=== PATIENT | male | born 1960 | race Caucasian/White ===

== ENCOUNTER 2018-06-24 14:35 | Outpatient (REF) | payer BC, SELFPAY ==
[2018-06-24 19:20] LABS: ALT 58 U/L (12-78); LDL CHOLESTEROL 115 mg/dL (<100)
== END 2018-06-24 14:55 ==
LOC: NCHCN 14:35
PROVIDERS: PCP Internal Medicine; Visit Provider Internal Medicine
DX: Z00.00 Encounter for general adult medical examination without abnormal findings (principal); E78.5 Hyperlipidemia, unspecified; E03.9 Hypothyroidism, unspecified
CPT/HCPCS: 83721; 84443; 84460

== ENCOUNTER 2020-01-11 16:13 | Outpatient (REF) | payer BC, SELFPAY ==
[2020-01-11 19:53] LABS: ALT 45 U/L (16-63); CREATININE 0.95 mg/dL (0.70-1.30); Calculated LDL 107 mg/dL (<100); Cholesterol 164 mg/dL (<200); Glucose 87 mg/dL (74-106); HDL Cholesterol 34 mg/dL (40-60); TSH 1.67 uIU/mL (0.36-3.74); Triglyceride 118 mg/dL (<150)
[2020-01-11 20:07] LABS: Creatine Kinase 183 U/L (39-308)
== END 2020-01-11 16:33 ==
LOC: NCHCN 16:13
PROVIDERS: PCP Internal Medicine; Visit Provider Internal Medicine
DX: Z00.00 Encounter for general adult medical examination without abnormal findings (principal); E78.5 Hyperlipidemia, unspecified; E03.9 Hypothyroidism, unspecified
CPT/HCPCS: 80061; 82550; 82947; 82565; 84443; 84460

== ENCOUNTER 2021-02-03 14:40 | Outpatient (REF) | payer BC, SELFPAY ==
[2021-02-03 19:37] LABS: ALT 41 U/L (16-63); LDL CHOLESTEROL 111 mg/dL (<100); TSH 1.43 uIU/mL (0.36-3.74)
== END 2021-02-03 14:41 | disposition home or self-care (01) ==
LOC: NCHCN 14:40
PROVIDERS: PCP Internal Medicine; Visit Provider Internal Medicine
DX: Z00.00 Encounter for general adult medical examination without abnormal findings (principal); E66.3 Overweight
CPT/HCPCS: 83721; 82565; 84443; 84460

== ENCOUNTER 2022-03-13 17:30 | Outpatient (REF) | payer BC, SELFPAY ==
[2022-03-13 20:04] LABS: ALT 46 U/L (16-63); Anion Gap 8.6 mmol/L (3-11); BUN 14 mg/dL (7-18); CO2 27.4 mmol/L (21.0-32.0); Calcium 9.5 mg/dL (8.5-10.1); Calculated LDL 86 mg/dL (<100); Chloride 103 mmol/L (98-107); Cholesterol 153 mg/dL (<200); Estimated GFR 86.16 (mL/min/1.73m2); Glucose 93 mg/dL (74-106); HDL Cholesterol 40 mg/dL (40-60); Sodium 139 mmol/L (136-145); TSH 1.59 uIU/mL (0.36-3.74); Triglyceride 139 mg/dL (<150)
[2022-03-13 20:26] LABS: Creatine Kinase 275 U/L (39-308)
== END 2022-03-13 17:31 | disposition home or self-care (01) ==
LOC: NCHCN 17:30
PROVIDERS: PCP Internal Medicine; Visit Provider Internal Medicine
DX: R03.0 Elevated blood-pressure reading, without diagnosis of hypertension (principal)
CPT/HCPCS: 80048; 80061; 82550; 84443; 84460

== ENCOUNTER 2022-08-11 06:48 | Day surgery (SDC) | payer BC, SELFPAY ==
--- NOTE | 2022-08-10 20:43 | W.PM.DSUDISC ---
Date of service: 08/11/22 Time of Service: 08:45 Discharge Plan Disposition Patient Disposition: Home Condition: Good Discharge Details Reason For Visit: Screening colonoscopy Attending Provider: Toan Feng Primary Care Provider: Kevin Starr Home Meds and New Rx's Prescriptions: Continued simvastatin 20 mg tablet 20 mg PO DAILY valsartan 80 mg tablet 80 mg PO DAILY omega 4-ynr-nyl-fish oil [Fish Oil] 60-90-500 mg capsule 1 cap PO DAILY multivitamin Tablet 1 tab PO DAILY levothyroxine 175 mcg capsule 175 mcg PO DAILY Discontinued bisacodyl [Dulcolax (bisacodyl)] 5 mg tablet,delayed release (DR/EC) 5 mg PO ONCE Qty: 4 0RF Rx Instructions: Take according to provider's instructions for colonoscopy prep. polyethylene glycol 3350 17 gram/dose powder 17 g PO ONCE Qty: 238 0RF Rx Instructions: To be taken as directed by prescriber's office for colonoscopy prep. Discharge Instructions Instructions: Colorectal Polyps (GEN), Diverticulosis (GEN), Diverticulosis Diet (GEN) Additional Instructions: All we were able to complete your colonoscopy today without any difficulty. You had 2 small rectal polyps, as well as 1 polyp in the cecum. He also had some very rare diverticulosis. We have attached some information here regarding what those things are, and the best ways to take care of them. Once I have the pathology report on the biopsy results, I will notify you. 1. If tolerated, consume a soft, low fiber diet for 1-2 days. 2[address] Do not drive, drink alcohol, operate machinery, make critical decisions, or do activities that require coordination or balance for 24 hours. 3. Because air was put into your colon during the procedure, expelling air from your rectum (passing gas or farting) is normal. 4. You may not have a bowel movement for 1-3 days because of the colonoscopy prep. This is normal. 5. Go directly to the emergency room if you notice any of the following: Develop chills (warm to touch), or if you have a thermometer and your temperature is above 101 Difficulty breathing or difficultly swallowing Persistent vomiting Severe abdominal pain, other than gas cramps Severe chest pain Black, tarry stools Any bleeding ? exceeding one tablespoon 6. Call your physician if the site where your intravenous was started becomes red, swollen, painful, and warm to touch. 7. Your physician has reviewed your pre-procedure medications. Please continue to take those medications as previously ordered. You will be given specific information/education regarding any changes to your medications before leaving. Stand Alone Forms: José Luis Blanco (DSU) Activity:: Activity as Tolerated Diet:: As Tolerated Discharge Orders Discharge Orders: Discharge Order (Routine); Ordered 08/10/22 Ordered By: Toan Feng DS: Diagnosis Discharge Diagnosis (1) Screening for colon cancer: Status: Acute Asessment and Plan: Follow-up on pathology
--- NOTE | 2022-08-10 20:44 | W.COLOREPORT ---
Date of service: 08/11/22 Time of Service: 08:46 Colonoscopy Report Date of procedure: 08/11/22 Pre-op diagnosis general: Screening colonoscopy Post-op diagnosis procedure note: other (Colorectal polyps, diverticulosis) Procedure: Colonoscopy with polypectomy Surgeon: Toan Feng Anesthesia Type: General:No Airway Estimated blood loss (mL): 10 Pathology: other (Rectal polyps x2, cecal polyp x1) Complications: None Disposition: same day Indications: Dario is a 62-year-old male following up with his next screening colonoscopy Prep: Miralax/Dulcolax Procedure Start Time: 08:15 Procedure End Time: 08:32 Retraction Time: 12 Findings: Rare diverticulosis, colorectal polyps Procedure Description: After the induction of monitored anesthetic care, and with the patient in left lateral decubitus position, I began by performing an external anorectal exam.? Perineum and skin were normal, as was the anal verge.? There was no evidence of external hemorrhoids.? Next, I performed a digital rectal exam.? I did not appreciate any abnormal findings.? Next, I advanced a colonoscope into the rectal vault.? I performed retroflexion.? This was normal.? Using insufflation, I then advanced the colonoscope beyond the rectal folds and into the sigmoid colon before advancing towards the cecum.? The quality of the prep was excellent.? The scope was noted to be in the cecum by identification of the ileocecal valve and appendiceal orifice.? I then began withdrawing the colonoscope using repeated irrigation as necessary for full evaluation of the colonic mucosa. Within the cecum, identified a 0.25 cm polyp. It was sessile. I removed it with cold forcep polypectomy. There was minimal bleeding. Once the scope was withdrawn to the level of the rectum, great care was taken to examine portions of the rectal folds.? Within the distal rectum, there were 2 polyps. Each was less than 0.5 cm. Both were sessile. I removed both with cold forcep polypectomy. There was minimal bleeding. Finally, the scope was withdrawn and the patient was brought to the same-day surgery recovery unit as the anesthetic wore off. ?The findings and instructions were shared with the patient prior to discharge.
[2022-08-11 07:04] VITALS: BP 130/80; PULSE 99; RESP 16; TEMP 36.8; O2SAT 97
[2022-08-11] MEDS: Lactated Ringers 1,000 ML 80 ML IV (07:27)
--- NOTE | 2022-08-11 08:01 | W.ANESPRE ---
General Info Date of Service Date Performed: 08/11/22 Height: 6 ft 1 in Weight: 99.9 kg Body Mass Index (BMI): 29.0 Surgical Procedure: Operation Date: 08/11/22 08:20 Proposed Procedure Side Surgeon p Colonoscopy Toan Feng MD Meds Allergies and Home Medications Allergies Allergy/AdvReac Type Severity Reaction Status Date / Time No Known Allergies Allergy Verified 08/07/22 14:30 Home Medication Medication Instructions Recorded levothyroxine 175 mcg capsule 175 mcg PO DAILY 02/24/22 multivitamin 1 tab PO DAILY 02/24/22 omega 7-sfl-hgr-fish oil 60 mg-90 1 cap PO DAILY 02/24/22 mg-500 mg capsule (Fish Oil) simvastatin 20 mg tablet 20 mg PO DAILY 07/16/22 valsartan 80 mg tablet 80 mg PO DAILY 07/16/22 Current Visit Medications: Current Medications Generic Name Dose Route Start Last Admin Trade Name Freq PRN Reason Stop Dose Admin Hyoscyamine Sulfate 0.125 mg 08/10/22 20:45 Hyoscyamine 0.125 Mg Sl/Oral/Chew SL DIRECTED PRN Ringer's Solution 1,000 mls @ 80 mls/hr 08/11/22 06:00 08/11/22 07:27 IV 09/09/22 23:59 80 mls/hr INFUSION ELHAM Administration IV Miscellaneous Supplies 1 each 08/11/22 06:00 Iv Access IV 09/09/22 23:59 DIRECTED ELHAM Ondansetron HCl 4 mg 08/10/22 20:45 Ondansetron 4 Mg/2 Ml Vial IVP Q4H PRN PRN Nausea / Vomiting Sodium Chloride 0 ml 08/11/22 06:00 Normal Saline Flush 10 Ml Syr IV 09/09/22 23:59 PRN PRN Sodium Chloride 0 ml 08/11/22 06:00 Normal Saline 10 Ml Vial IJ 09/09/22 23:59 DIRECTED PRN Sterile Water 0 ml 08/11/22 06:00 Water,Injection,Sterile 10 Ml Vial IJ 09/09/22 23:59 DIRECTED PRN PFSH Active Problems Active Problems: Problem Status Onset Code Screening for colon cancer Z12.11 Osteoarthritis M19.90 Overweight E66.3 Bicipital tendinitis M75.20 Hyperlipidemia E78.5 GERD (gastroesophageal reflux disease) K21.9 Tinea cruris B35.6 Hypothyroidism E03.9 Medical History Medical History (Updated 08/11/22 @ 07:13 by Priscila Herrera RN) Hx of renal calculi Nephrolithiasis Personal history of kidney stones Surgical History Surgical History History of cholecystectomy 2006 Tobacco Smoking/Tobacco Use Status: Never Alcohol Alcohol Intake: never Substance Use Substance use: Never Substance use type: does not use Vital Signs and Lab Results Vital Signs Most Recent Vital Signs in EMR: Most Recent Vital Signs Temp Pulse Resp BP Pulse Ox 36.8 C 99 H 16 130/80 97 08/11/22 07:04 08/11/22 07:04 08/11/22 07:04 08/11/22 07:04 08/11/22 07:04 Lab Results Blood Type / Crossmatch: No Data to Display Complete Blood Count: No Data to Display Complete Metabolic Panel: No Data to Display Liver Function Panel: No Data to Display Coagulation Panel: No Data to Display Cardiac Panel: No Data to Display Arterial Blood Gas: No Data to Display Venous Blood Gas: No Data to Display Pancreas Panel: No Data to Display Thyroid Panel: No Data to Display Infectious Disease: No Data to Display Blood Cultures: No Data to Display Toxicology Panel: No Data to Display Anesthesia Assessment and Plan Anesthesia History Personal History: No History of Anesthesia Complications Family History: No Family History of Anesthesia Complications Exercise Tolerance Exercise Tolerance: Metabolic Equivalents>4 Pertinent Negatives Pertinent Negatives: No Symptoms of GERD, No Major Cardiovascular Symptoms or Complaints and No Major Pulmonary Symptoms or Complaints Cardiac & Pulmonary Exam Cardiac Exam: Normal S1/S2 Heart Sounds Pulmonary Exam: Clear Bilateral Breath Sounds Implantable Cardiac Device Does patient have a Pacemaker or an ICD?: No Airway Exam Known Difficult Airway: No Mallampati Class: 2 Mouth Opening: Narrow (< 3cm) Thyromental Distance: Greater than 3 cm Neck Range of Motion: Full ROM Neck Circumference: Normal Teeth Condition: Normal Dentition ASA Classification ASA Score: ASA 2 Emergency Case?: No NPO Status NPO Status: NPO Clears >2 hours, Solids >8 hours Anesthesia Plan Resuscitation Status: Full Code Anesthesia Technique: General Anesthesia Airway Planned: Natural Airway Monitors Used: Standard Monitors
[2022-08-11 08:03] VITALS: BMI 29.0
--- NOTE | 2022-08-11 08:17 | BOWEL_PTH ---
PATIENT: Dario Chin LOC: [facility] U#:[id number] AGE/SX: 62/M ROOM: RE08/11/[address]: Toan Feng MD : 1960 BED: DIS: 08/11/2022 SPEC #: [id number] RECD: 08/11/22 12:40 STATUS: CARRIE REQ #: [id number] YENNY: 08/11/22 08:[address]: Toan Feng DEPT: Surgical Specimen RECD BY: Janice Costa ENTERED: 08/11/22 12:41 SP TYPE: Bowel OTHR DR: Kevin Starr Tissues: 1 - BIOPSY BOWEL 2 - BIOPSY BOWEL Procedures: GROSS AND MICRO LEVEL 4 Comments: [id number]
[2022-08-11 08:35] VITALS: BP 114/73; PULSE 91; RESP 16; TEMP 36.5; O2SAT 94
[2022-08-11 09:01] VITALS: BP 123/81; PULSE 74; RESP 16; TEMP 36.4; O2SAT 98
--- NOTE | 2022-08-11 09:05 | W.ANESPOSTOP ---
Postoperative Evaluation Date, Time and Location Date Performed: 08/11/22 Time Performed: 08:53 Patient Location: Day Surgery Unit Vital Signs Most Recent Imported Vital Signs: Most Recent Vital Signs Temp Pulse Resp BP Pulse Ox 36.5 C 91 H 16 114/73 94 08/11/22 08:35 08/11/22 08:35 08/11/22 08:35 08/11/22 08:35 08/11/22 08:35 Pain Score Most Recent Pain Score: Most Recent Pain Score Pain Level 0 08/11/22 08:35 Assessment Mental Status: Arousable with meaningful communication Airway and Respiratory Function: Patent airway with normal (patient baseline) respiratory exam Cardiovascular Function: Hemodynamically Stable Hydration Status: Adequately Hydrated Nausea & Vomiting: No Nausea or Vomiting Pain: Pt. Denies Any Pain Peripheral Nerve Block: Patient did not receive a nerve block
== END 2022-08-11 09:26 | disposition home or self-care (01) ==
PROVIDERS: PCP Internal Medicine; Visit Provider Surgery
PROC: 0DJD8ZZ Inspection of Lower Intestinal Tract, Via Natural or Artificial Opening Endoscopic (ICD-10-PCS; CPT 45378; principal; 2022-08-11 08:15)
DX: Z12.11 Encounter for screening for malignant neoplasm of colon (principal); K63.5 Polyp of colon; K57.30 Diverticulosis of large intestine without perforation or abscess without bleeding; K62.1 Rectal polyp
CPT/HCPCS: 45380; 88305

== ENCOUNTER 2023-03-24 20:24 | Outpatient (REF) | payer BC, SELFPAY ==
[2023-03-24 21:28] LABS: Anion Gap 6.6 mmol/L (3-11); BUN 13 mg/dL (7-18); CO2 29.4 mmol/L (21.0-32.0); Calcium 10.1 mg/dL (8.5-10.1); Calculated LDL 99 mg/dL (<100); Chloride 102 mmol/L (98-107); Cholesterol 161 mg/dL (<200); Estimated GFR 85.63 (mL/min/1.73m2); Glucose 99 mg/dL (74-106); HDL Cholesterol 40 mg/dL (40-60); Potassium 4.1 mmol/L (3.5-5.1); Sodium 138 mmol/L (136-145); TSH 0.94 uIU/mL (0.36-3.74); Triglyceride 113 mg/dL (<150)
== END 2023-03-24 20:25 | disposition home or self-care (01) ==
LOC: NCHCN 20:24
PROVIDERS: PCP Internal Medicine; Visit Provider Internal Medicine
DX: Z00.00 Encounter for general adult medical examination without abnormal findings (principal); E03.9 Hypothyroidism, unspecified
CPT/HCPCS: 80048; 80061; 84443

== ENCOUNTER 2024-03-27 20:39 | Outpatient (REF) | payer BC, SELFPAY ==
[2024-03-27 20:24] LABS: ALT 35 U/L (16-63); Anion Gap 9.7 mmol/L (3-11); BUN 10 mg/dL (7-18); CO2 25.3 mmol/L (21.0-32.0); Calcium 9.7 mg/dL (8.5-10.1); Chloride 104 mmol/L (98-107); Creatine Kinase 181 U/L (39-308); Glucose 95 mg/dL (74-106); Potassium 3.8 mmol/L (3.5-5.1); Sodium 139 mmol/L (136-145); TSH 1.63 uIU/Ml (0.36-3.74)
[2024-03-27 20:37] LABS: Calculated LDL 79 mg/dL (<100); Cholesterol 154 mg/dL (<200); HDL Cholesterol 39 mg/dL (40-60); Triglyceride 180 mg/dL (<150)
== END 2024-03-27 20:40 | disposition home or self-care (01) ==
LOC: NCHCN 20:39
PROVIDERS: PCP Internal Medicine; Visit Provider Internal Medicine
DX: I10 Essential (primary) hypertension (principal); E03.9 Hypothyroidism, unspecified; E78.5 Hyperlipidemia, unspecified
CPT/HCPCS: 80048; 80061; 82550; 84443; 84460

== ENCOUNTER 2025-04-04 20:15 | Outpatient (REF) | payer BC, SELFPAY ==
[2025-04-04 22:10] LABS: ALT 39 U/L (16-63); AST 29 U/L (15-37); Albumin 4.2 g/dL (3.4-5.0); Alkaline Phosphatase 80 U/L (46-116); Anion Gap 7.2 mmol/L (3-11); BUN 10 mg/dL (7-18); Bilirubin, Total 0.6 mg/dL (0.2-1.0); CO2 27.8 mmol/L (21.0-32.0); Calcium 9.4 mg/dL (8.5-10.1); Chloride 104 mmol/L (98-107); Estimated GFR 95.97 (mL/min/1.73m2); Glucose 94 mg/dL (74-106); Potassium 3.9 mmol/L (3.5-5.1); Sodium 139 mmol/L (136-145); TSH (W/Ref FT4) 0.59 uIU/mL (0.36-3.74); Total Protein 7.7 g/dL (6.4-8.2)
[2025-04-05 17:45] LABS: PSA, Screening 3.6 ng/mL (<=4.5)
== END 2025-04-04 20:16 | disposition home or self-care (01) ==
LOC: NCHCN 20:15
PROVIDERS: PCP Internal Medicine; Visit Provider Physician Assistant
DX: I10 Essential (primary) hypertension (principal); E03.9 Hypothyroidism, unspecified; Z12.5 Encounter for screening for malignant neoplasm of prostate
CPT/HCPCS: 80053; 84153; 84443